=== PATIENT | male | born 1945 | race African-American/Black ===

== ENCOUNTER 2017-04-02 16:31 | Emergency (ER) | payer MEDICARE, MEDICAID ==
[~2017-04-02 16:31] MED LIST: Sodium Chloride Irrig Solution 250 ML BOT ONE
[2017-04-02] MEDS ORDERED: Adacel (T-DAP) 0.5 ML VIAL ONE (17:32)
[2017-04-02] MEDS ORDERED: Triple Antibiotic Oint 1 GM Packet ONE (17:47)
[2017-04-02] MEDS ORDERED: HYDROcodone/Acetaminophen 10/325 mg Tablet ONE (17:57)
[2017-04-02] MEDS ORDERED: Naproxen 500 MG TAB ONE (17:57)
[2017-04-02] MEDS ORDERED: Diazepam 5 MG TAB ONE (17:57)
[2017-04-02] MEDS ORDERED: Cephalexin 500 MG CAP ONE (17:57)
--- NOTE | 2017-04-02 18:11 | RAD ---
RIGHT HAND THREE VIEWS: History: Trauma. Comparison: None. FINDINGS: No acute fracture or malalignment is appreciated. There is some calcification along the triangular f ibrocartilage near the radial insertion. Mild interphalangeal joint space narrowing of the third, fourth, and fifth proximal interphalangeal joints. Mild punctate radiopaque foreign object projecting over the dorsal soft tissues of the distal forear m seen only on the radial radiograph. IMPRESSION: 1. No acute fracture or malalignment. 2. Only seen on the lateral radiograph is a dorsal distal radiopaque foreign object projecting over the soft tissues measuring approximately 2 mm. Forearm radiographs may be beneficial. POS: [facility]
== END 2017-04-02 18:03 | disposition home or self-care (01) ==
LOC: MADERS 16:31
DX: S61.411A Laceration without foreign body of right hand, initial encounter (principal); M54.5 Low back pain; I10 Essential (primary) hypertension; E11.9 Type 2 diabetes mellitus without complications; W01.0XXA Fall on same level from slipping, tripping and stumbling without subsequent striking against object, initial encounter
CPT/HCPCS: 12002; 90471; 90715

== ENCOUNTER 2017-05-27 14:21 | Emergency (ER) | payer MEDICARE, MEDICAID | END 2017-05-27 15:05 | disposition home or self-care (01) | LOC: MADERS 14:21 | DX: S16.1XXA Strain of muscle, fascia and tendon at neck level, initial encounter (principal); E11.9 Type 2 diabetes mellitus without complications; I10 Essential (primary) hypertension; X58.XXXA Exposure to other specified factors, initial encounter | CPT/HCPCS: 99283 ==

== ENCOUNTER 2017-07-30 12:06 | Emergency (ER) | payer MEDICARE, MEDICAID | END 2017-07-30 13:26 | disposition home or self-care (01) | LOC: MADERS 12:06 | DX: H61.21 Impacted cerumen, right ear (principal); E11.9 Type 2 diabetes mellitus without complications; I10 Essential (primary) hypertension; Z87.891 Personal history of nicotine dependence; Z79.84 Long term (current) use of oral hypoglycemic drugs; Z79.899 Other long term (current) drug therapy | CPT/HCPCS: 99282 ==

== ENCOUNTER 2017-11-08 08:45 | Emergency (ER) | payer MEDICARE, MEDICAID ==
--- NOTE | 2017-11-08 09:52 | RAD ---
CHEST PA AND LATERAL TWO VIEWS: History: 72-year-old male with history of right sided back pain with inspiration. Comparison: 10-20-13 FINDINGS: Old numerous healed left rib fractures with some healed right rib fractures with some associated pleu ral thickening. No confluent pneumonia, overt edema, or pleural effusion. Mild apical pleural thicken ing. Heart size is within normal limits. Atherosclerosis of the aorta. IMPRESSION: Bilateral healed rib fractures and associated deformity. No significant acute intrathoracic disease. Atherosclerosis of the aorta with some ectasia. POS: [facility]
== END 2017-11-08 10:45 | disposition home or self-care (01) ==
LOC: MADERS 08:45
DX: J06.9 Acute upper respiratory infection, unspecified (principal); R07.81 Pleurodynia; I10 Essential (primary) hypertension; E11.9 Type 2 diabetes mellitus without complications; Z87.891 Personal history of nicotine dependence; Z79.899 Other long term (current) drug therapy
CPT/HCPCS: 71046

== ENCOUNTER 2018-02-06 07:38 | Emergency (ER) | payer MEDICARE, MEDICAID ==
--- NOTE | 2018-02-06 09:34 | RAD ---
RIGHT RIBS TWO VIEWS: PA CHEST X-RAY: HISTORY: Fall. COMPARISON: 11/08/2017 FINDINGS: There are increased interstitial markings throughout the lungs. Mild blunting of the right lateral c ostophrenic and the left lateral costophrenic sulci. Heart size is at the upper limits of normal. No right-sided pneumothorax. No displaced fracture. IMPRESSION: 1. Mild increased interstitial markings with low grade blunting of both costophrenic sulci, which ca n be seen with early edema. 2. No acute displaced right-sided rib fracture. 3. Apparent bridging bone between the posterior left 4th-8th ribs may be sequelae of prior fracture. POS: [facility]
== END 2018-02-06 09:35 | disposition home or self-care (01) ==
LOC: MADERS 07:38
DX: S20.211A Contusion of right front wall of thorax, initial encounter (principal); E11.9 Type 2 diabetes mellitus without complications; I10 Essential (primary) hypertension; Z87.891 Personal history of nicotine dependence; Z79.899 Other long term (current) drug therapy; Z79.84 Long term (current) use of oral hypoglycemic drugs; W18.30XA Fall on same level, unspecified, initial encounter

== ENCOUNTER 2018-06-15 13:16 | Emergency (ER) | payer MEDICARE, MEDICAID ==
[2018-06-15] MEDS ORDERED: predniSONE 20 MG TAB ONE (14:50)
[2018-06-15] MEDS ORDERED: Ketorolac Tromethamine 60 MG/2 ML VIAL ONE (14:50)
--- NOTE | 2018-06-15 15:27 | CT ---
CT ABDOMEN AND PELVIS WIHTOUT IV CONTRAST: Date: 06/15/18 Multiple axial tomograms obtained through the abdomen and pelvis without IV enhancement. INDICATION: Left lower abdominal pain. Comparison made to CT of 03/05/13. FINDINGS: Lung bases clear. Hepatic cystic lesions are again seen and appear stable from the 03/05/13 study. Spleen and pancreas appear unremarkable given the limitations of an unenhanced exam. There is a 1.5 cm low density nodule involving the lateral limb of the left adrenal and there is anot her 1.4 cm nodule involving the medial limb of the left adrenal. The lateral limb nodule is low densi ty with Hounsfield units recorded at -11, indicating a benign myelolipoma. The more medial limb nodul e is more dense with Hounsfield units recorded at 8-9, still suggesting benign adenoma. Both of these left adrenal nodular densities are stable. The right adrenal gland appears unremarkable. A left renal cystic lesion measuring 3.0 cm is stable. No hydronephrosis. No urinary tract calculus. Small bowel loops are normal. Scattered diverticula are seen throughout the colon with more diffuse diverticulitis in the left colo n and sigmoid. Axial images show evidence of some early inflammatory haziness surrounding the upper sigmoid which could represent very mild or early diverticulitis. No extraluminal gas or fluid. Aorta normal caliber. There is prostatic hypertrophy, which does indent the floor of the bladder. This appears stable from prior exam. IMPRESSION: 1. Diverticulosis of the left colon and sigmoid. Questionable changes of early diverticulitis in the lower left colon/upper sigmoid in the left lower quadrant. 2. Two left adrenal nodules are stable. 3. Left renal cyst is stable. 4. Hepatic cysts are stable. 5. Prostatic hypertrophy. POS: [facility]
== END 2018-06-15 15:00 | disposition home or self-care (01) ==
LOC: MADERS 13:16
DX: M54.41 Lumbago with sciatica, right side (principal); E11.9 Type 2 diabetes mellitus without complications; Z87.891 Personal history of nicotine dependence; Z79.899 Other long term (current) drug therapy
CPT/HCPCS: 74176; 96372; J1885; J7506

== ENCOUNTER 2018-07-31 09:58 | Emergency (ER) | payer MEDICARE, MEDICAID ==
[2018-07-31 11:21] LABS: #Basophils 0.1 thou/uL (0.0-0.2); #Eosinphils 0.2 thou/uL (0.0-0.7); #Lymphocytes 1.8 thou/uL (1.20-3.40); #Monocytes 0.8 thou/uL (0.11-0.59); #Neutrophils 5.5 thou/uL (1.40-6.50); %Basophils 1.4 % (0.0-1.0); %Eosinophils 2.7 % (0.0-10.0); %Lymphocytes 21.3 % (21.0-51.0); %Monocytes 9.6 % (0.0-10.0); %Neutrophils 65.1 % (42.0-75.0); Hemoglobin 11.3 g/dL (14.0-18.0); Mean Corpuscular HGB CONC 30.7 g/dL (32.0-36.0); Mean Corpuscular Hemoglobin 26.1 pg (27.0-31.0); Mean Corpuscular Volume 85.1 fL (78.0-98.0); Mean Platelet Volume 9.2 fL (7.4-10.4); Platelet Count 213 thou/uL (130-400); RBC Distribution Width 12.5 % (11.5-14.5); Red Blood Cell (RBC) Count 4.33 mill/uL (4.70-6.10); White Blood Cell (WBC) Count 8.4 thou/uL (4.8-10.8)
[2018-07-31 11:24] LABS: Bilirubin Moderate (Negative); Blood, Urine Negative (Negative); Clarity Clear (Clear); Glucose, Urine (Dipstick) Negative (Negative); Leukocyte Negative (Negative); Nitrite Negative (Negative); Protein, Urine (Dipstick) Trace mg/dL (Neg-Trace); Urobilinogen 0.2 mg/dL (0.2-1.0); pH, Urine 5.5 (5.0-9.0)
[2018-07-31 11:29] LABS: Specific Gravity, Urine 1.019 (1.002-1.036)
[2018-07-31 11:36] LABS: ALT (SGPT) 9 U/L (8-55); AST (SGOT) 14 U/L (5-34); Albumin 4.3 g/dL (3.4-4.8); Alkaline Phosphatase 68 U/L (40-150); Anion Gap 14 mmol/L (10-20); BUN (Urea Nitrogen) 22 mg/dL (8.4-25.7); Bilirubin, Total 0.7 mg/dL (0.2-1.2); Calc. Creatinine Clearance 0 mL/min (70-130); Calcium 9.2 mg/dL (7.8-10.44); Carbon Dioxide 28 mmol/L (23-31); Chloride 102 mmol/L (98-107); Estimated GFR-MDRD 55; Globulin 3.6 g/dL (2.4-3.5); Glucose 98 mg/dL (83-110); Lipase 8 U/L (8-78); Potassium 3.3 mmol/L (3.5-5.1); Protein, Total 7.9 g/dL (5.8-8.1); Sodium 141 mmol/L (136-145)
[2018-07-31] MEDS ORDERED: Iopamidol 370 76% 100 ML VIAL ONE (12:08)
--- NOTE | 2018-07-31 12:38 | CT ---
ABDOMEN CT WITH CONTRAST PELVIC CT WITH CONTRAST: History: Umbilical/suprapubic pain x 1 day. Comparison: 03-31-13, 06-14-18 FINDINGS: CT ABDOMEN: Chronic changes in the lung bases. Heart size is within normal limits. No pericardial fluid. Visualiz ed aorta has a normal caliber. No periaortic fat stranding. Patent portal vein. Unremarkable gallblad jorgito. Multiple hypodensities involving the liver compatible with hepatic cysts. Spleen, pancreas, and right adrenal gland are unremarkable. Re-demonstration of a stable nodule involving the left adrenal gland which has been previously documented to be a benign, stable lesion. Symmetric enhancement of the kid neys. No obstructive uropathy. Re-demonstration of the exophytic cyst emanating from the upper pole o f the left kidney measuring approximately 3.6 cm. No gastrohepatic, retrocrural, periportal lymphadenopathy. No mesenteric mass, lymphadenopathy, free air or free fluid. There are few scattered nonspecific lymp h nodes in the right lower quadrant mesentery. There is repair of a previously noted ventral abdominal wall hernia. No evidence of a significant ant erior abdominal wall hernia at this time. Limited evaluation of the alimentary canal due to lack of oral contrast. No evidence of bilateral obs truction. Normal caliber small bowel loops. Ileocecal junction is normal. Normal caliber appendix. Un remarkable colon. Scattered fecal material without evidence of chronic distention or obstruction. Div erticula are present. No evidence of diverticulitis. CT PELVIS: Mild prostatic hypertrophy with mass effect on the floor of the urinary bladder. Urinary bladder muco sa is unremarkable. No pelvic mass, lymphadenopathy, free air or free fluid. No lytic or blastic lesions in the osseous structures. Chronic changes involving the endplates in the lower lumbar spine are noted. IMPRESSION: 1. No acute abnormality in the abdomen or pelvis. 2. No evidence of bowel obstruction. 3. Re-demonstration of diverticulosis without evidence of diverticulitis. 4. Normal caliber appendix. 5. Stable left adrenal nodules. POS: [facility]
== END 2018-07-31 12:57 | disposition home or self-care (01) ==
LOC: MADERS 09:58
DX: R10.31 Right lower quadrant pain (principal); R10.32 Left lower quadrant pain; E11.9 Type 2 diabetes mellitus without complications; I11.0 Hypertensive heart disease with heart failure; Z87.891 Personal history of nicotine dependence; Z79.899 Other long term (current) drug therapy
CPT/HCPCS: 74177; 80053; 81003; 83690; 84484; 85025; 93005

== ENCOUNTER 2018-10-31 08:00 | Emergency (ER) | payer MEDICARE, MEDICAID ==
[2018-10-31] MEDS ORDERED: Cyclobenzaprine 10 MG TAB ONE (08:45)
[2018-10-31] MEDS ORDERED: Ibuprofen 800 MG TAB ONE (08:45)
== END 2018-10-31 08:50 | disposition home or self-care (01) ==
LOC: MADERS 08:00
DX: M54.5 Low back pain (principal); I10 Essential (primary) hypertension; Z87.891 Personal history of nicotine dependence; Z79.899 Other long term (current) drug therapy
CPT/HCPCS: 99283

== ENCOUNTER 2018-11-20 14:59 | Emergency (ER) | payer MEDICARE, MEDICAID ==
[2018-11-20] MEDS ORDERED: Morphine 4 MG/ML VIAL ONE (15:17)
[2018-11-20] MEDS ORDERED: Ondansetron PF 4 MG/2 ML Vial ONE (15:17)
[2018-11-20 15:18] LABS: #Basophils 0.1 thou/uL (0.0-0.2); #Eosinphils 0.2 thou/uL (0.0-0.7); #Lymphocytes 1.6 thou/uL (1.20-3.40); #Monocytes 0.6 thou/uL (0.11-0.59); #Neutrophils 5.9 thou/uL (1.40-6.50); %Basophils 0.7 % (0.0-1.0); %Eosinophils 2.8 % (0.0-10.0); %Lymphocytes 18.4 % (21.0-51.0); %Monocytes 7.6 % (0.0-10.0); %Neutrophils 70.4 % (42.0-75.0); Hemoglobin 11.1 g/dL (14.0-18.0); Mean Corpuscular Hemoglobin 25.3 pg (27.0-31.0); Mean Corpuscular Volume 84.3 fL (78.0-98.0); Mean Platelet Volume 6.2 fL (7.4-10.4); Platelet Count 213 thou/uL (130-400); RBC Distribution Width 13.9 % (11.5-14.5); Red Blood Cell (RBC) Count 4.39 mill/uL (4.70-6.10); White Blood Cell (WBC) Count 8.4 thou/uL (4.8-10.8)
[2018-11-20 15:22] LABS: Prothrombin Time 13.6 SEC (12.0-14.7)
[2018-11-20 15:33] LABS: ALT (SGPT) 9 U/L (8-55); AST (SGOT) 15 U/L (5-34); Albumin 4.3 g/dL (3.4-4.8); Alkaline Phosphatase 73 U/L (40-150); Anion Gap 14 mmol/L (10-20); BUN (Urea Nitrogen) 16 mg/dL (8.4-25.7); Bilirubin, Total 0.4 mg/dL (0.2-1.2); Calc. Creatinine Clearance 0 mL/min (70-130); Calcium 9.6 mg/dL (7.8-10.44); Carbon Dioxide 27 mmol/L (23-31); Chloride 104 mmol/L (98-107); Estimated GFR-MDRD 78; Globulin 4.3 g/dL (2.4-3.5); Glucose 93 mg/dL (83-110); Potassium 3.4 mmol/L (3.5-5.1); Protein, Total 8.6 g/dL (5.8-8.1); Sodium 142 mmol/L (136-145)
--- NOTE | 2018-11-20 16:13 | CT ---
FCT Abdomen Pelvis W Con: 11/20/2018 3:09 PM CLINICAL INFORMATION: Back pain, lower right side since yesterday COMPARISON: 07/31/2018, 06/15/2018 Procedure: Multiple contiguous axial images were obtained and a CT of the abdomen and pelvis with IV contrast. C oronal reformats were performed. FINDINGS: Lower Chest: Chronic changes. Dependent atelectatic changes Vessels: Normal caliber aorta Abdomen: Portal vein:Patent Gallbladder: No calcified gallstones. Normal caliber wall. Liver: Multiple hypodensities throughout the hepatic parenchyma, unchanged. Largest hypodensity appea rs to have a septation, measuring 4.3 x 3.5 cm (previously measuring 4.5 x 3.5 cm. Hepatic cyst is fa vored. No enhancing masses in the liver. Pancreas: within normal limits. Spleen: within normal limits. Adrenals: Right adrenal gland is unremarkable. Redemonstration of a 1.7 x 1.8 nodule associated with the left adrenal gland. Kidneys: Symmetric enhancement. Stable exophytic cyst emanating from the mid left renal cortex. Bilat erally no obstructive uropathy. Peritoneum: No ascites or free air, no fluid collection. Bowel: Limited evaluation due to the lack of oral contrast administration. No evidence of small bowel obstruction. Equalization of the distal ileum likely due to incompetent ileocecal valve. Normal palmira krystal appendix. Scattered fecal material in a nondistended, nondilated colon. Diverticulosis. No eviden ce of colitis. Mesentery and Retroperitoneum: No enlarged mesenteric or retroperitoneal lymph nodes. Abdominal Wall: Chronic changes involving the ventral subcutaneous fat at the level of the umbilicus. Pelvis: Reproductive Organs: No pelvic masses. Prostate gland is enlarged. Mass effect upon the urinary bladd er. Bones: Old bilateral rib fractures IMPRESSION: 1. No evidence of acute intraabdominal\pelvic abnormality. 2. Redemonstration of a nodule in the medial limb left adrenal gland. Smaller nodule in the lateral l imb may be present. No appreciable change. Nodules have been previously described to be adenomas.
== END 2018-11-20 17:00 | disposition home or self-care (01) ==
LOC: MADERS 14:59
DX: M54.5 Low back pain (principal); E11.9 Type 2 diabetes mellitus without complications; I10 Essential (primary) hypertension; Z87.891 Personal history of nicotine dependence; Z79.899 Other long term (current) drug therapy
CPT/HCPCS: 74177; 80053; 85025; 85610; 96374; 96375; J2270; J2405

== ENCOUNTER 2019-02-11 15:36 | Emergency (ER) | payer MEDICARE, MEDICAID ==
[2019-02-11] MEDS ORDERED: Nitroglycerin 0.4 MG TAB 1 EACH ONE (15:54)
--- NOTE | 2019-02-11 16:01 | RAD ---
EXAM: CHEST ONE VIEW HISTORY: Chest pain COMPARISON: 02/06/2018 FINDINGS: Cardiac silhouette is magnified by projection. Mild chronic lung changes are seen. No consolidation o r pleural fluid is identified. There is osseous bridging again seen involving multiple posterior left-sided ribs. There are nondisplaced fractures involving upper posterior right-sided ribs unchange d from prior study. Chest is stable from prior exam. IMPRESSION: 1. Findings likely related to mild chronic interstitial lung changes. 2. Indeterminate age posterior right-sided rib fractures, but the fractures are unchanged from prior exam. 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
[2019-02-11 16:22] LABS: #Basophils 0.2 thou/uL (0.0-0.2); #Eosinphils 0.4 thou/uL (0.0-0.7); #Lymphocytes 1.6 thou/uL (1.20-3.40); #Monocytes 0.8 thou/uL (0.11-0.59); #Neutrophils 6.9 thou/uL (1.40-6.50); %Basophils 1.5 % (0.0-1.0); %Eosinophils 4.2 % (0.0-10.0); %Lymphocytes 16.1 % (21.0-51.0); %Monocytes 8.5 % (0.0-10.0); %Neutrophils 69.7 % (42.0-75.0); Hemoglobin 9.6 g/dL (14.0-18.0); Mean Corpuscular HGB CONC 31.3 g/dL (32.0-36.0); Mean Corpuscular Hemoglobin 25.8 pg (27.0-31.0); Mean Corpuscular Volume 82.7 fL (78.0-98.0); Mean Platelet Volume 7.1 fL (7.4-10.4); Platelet Count 263 thou/uL (130-400); RBC Distribution Width 13.9 % (11.5-14.5); Red Blood Cell (RBC) Count 3.72 mill/uL (4.70-6.10); White Blood Cell (WBC) Count 9.8 thou/uL (4.8-10.8)
[2019-02-11 16:30] LABS: ALT (SGPT) 8 U/L (8-55); AST (SGOT) 12 U/L (5-34); Albumin 3.9 g/dL (3.4-4.8); Alkaline Phosphatase 62 U/L (40-150); Anion Gap 13 mmol/L (10-20); BUN (Urea Nitrogen) 27 mg/dL (8.4-25.7); Bilirubin, Total 0.2 mg/dL (0.2-1.2); CK (CPK) 78 U/L (30-200); Calc. Creatinine Clearance 0 mL/min (70-130); Calcium 8.8 mg/dL (7.8-10.44); Carbon Dioxide 27 mmol/L (23-31); Chloride 102 mmol/L (98-107); Estimated GFR-MDRD 53; Glucose 105 mg/dL (83-110); Lipase 17 U/L (8-78); Potassium 4.4 mmol/L (3.5-5.1); Protein, Total 7.9 g/dL (5.8-8.1); Sodium 138 mmol/L (136-145)
[2019-02-11] MEDS ORDERED: Morphine 4 MG/ML VIAL ONE (16:54)
== END 2019-02-11 17:28 | disposition short-term general hospital (02) ==
LOC: MADERS 15:36
DX: R07.89 Other chest pain (principal); J45.909 Unspecified asthma, uncomplicated; K21.9 Gastro-esophageal reflux disease without esophagitis; I10 Essential (primary) hypertension; E11.9 Type 2 diabetes mellitus without complications; Z87.891 Personal history of nicotine dependence; Z79.899 Other long term (current) drug therapy
CPT/HCPCS: 71045; 80053; 82550; 83690; 83880; 84484; 85025; 93005; 94760; 96374; J2270

== ENCOUNTER 2019-02-16 09:25 | Emergency (ER) | payer MEDICARE, MEDICAID | END 2019-02-16 10:15 | disposition home or self-care (01) | LOC: MADERS 09:25 | DX: S23.3XXA Sprain of ligaments of thoracic spine, initial encounter (principal); I10 Essential (primary) hypertension; K21.9 Gastro-esophageal reflux disease without esophagitis; J45.909 Unspecified asthma, uncomplicated; E11.9 Type 2 diabetes mellitus without complications; Z79.899 Other long term (current) drug therapy; X58.XXXA Exposure to other specified factors, initial encounter | CPT/HCPCS: 99283 ==

== ENCOUNTER 2019-02-19 00:18 | Emergency (ER) | payer MEDICARE, MEDICAID ==
[2019-02-19] MEDS ORDERED: Ketorolac Tromethamine 60 MG/2 ML VIAL ONE (00:34)
== END 2019-02-19 01:02 | disposition home or self-care (01) ==
LOC: MADERS 00:18
DX: M54.6 Pain in thoracic spine (principal); Z87.891 Personal history of nicotine dependence
CPT/HCPCS: J1885

== ENCOUNTER 2019-02-19 05:57 | Emergency (ER) | payer MEDICARE, MEDICAID ==
--- NOTE | 2019-02-19 08:08 | RAD ---
Radiograph left shoulder 2 views: HISTORY: Nontraumatic left shoulder pain, acute FINDINGS: Glenohumeral joint appears normal. Distal tip of clavicle appears normal. There is irregularity and b kartik hypertrophy of the distal tip of the acromion. No fracture or subluxation. IMPRESSION: 1. Mild to moderate chronic changes of distal tip of acromion. 2. Otherwise negative. 3. If there is concern for rotator cuff injury, consider noncontrast MRI.
[2019-02-19] MEDS ORDERED: Naproxen 500 MG TAB ONE (08:37)
[2019-02-19] MEDS ORDERED: Cyclobenzaprine 10 MG TAB ONE (09:07)
== END 2019-02-19 11:30 | disposition home or self-care (01) ==
LOC: MADERS 05:57
DX: M25.512 Pain in left shoulder (principal); I10 Essential (primary) hypertension; J45.909 Unspecified asthma, uncomplicated; E11.9 Type 2 diabetes mellitus without complications; Z76.0 Encounter for issue of repeat prescription; Z87.891 Personal history of nicotine dependence; Z79.899 Other long term (current) drug therapy
CPT/HCPCS: 99282; J1885

== ENCOUNTER 2021-09-28 02:05 | Emergency (ER) | payer MEDICARE, MEDICAID ==
[2021-09-28 02:54] LABS: #Basophils 0.1 thou/uL (0.0-0.2); #Eosinphils 0.5 thou/uL (0.0-0.7); #Lymphocytes 1.1 thou/uL (1.20-3.40); #Monocytes 0.9 thou/uL (0.11-0.59); #Neutrophils 6.4 thou/uL (1.40-6.50); %Basophils 0.6 % (0.0-1.0); %Eosinophils 5.1 % (0.0-10.0); %Lymphocytes 12.3 % (21.0-51.0); %Monocytes 10.1 % (0.0-10.0); %Neutrophils 71.9 % (42.0-75.0); Hemoglobin 10.3 g/dL (14.0-18.0); Mean Corpuscular HGB CONC 31.7 g/dL (32.0-36.0); Mean Corpuscular Hemoglobin 26.5 pg (27.0-31.0); Mean Corpuscular Volume 83.8 fL (78.0-98.0); Mean Platelet Volume 6.6 fL (7.4-10.4); Platelet Count 189 thou/uL (130-400); RBC Distribution Width 12.9 % (11.5-14.5); White Blood Cell (WBC) Count 8.8 thou/uL (4.8-10.8)
[2021-09-28 03:11] LABS: CRP (Inflammatory) 3.15 mg/dL (= or < 0.5); Uric Acid 8.2 mg/dL (3.5-7.2)
[2021-09-28 03:13] LABS: ALT (SGPT) Less than 7 U/L (8-55); AST (SGOT) 15 U/L (5-34); Albumin 3.8 g/dL (3.4-4.8); Alkaline Phosphatase 60 U/L (40-110); Anion Gap 14 mmol/L (10-20); BUN (Urea Nitrogen) 32 mg/dL (8.4-25.7); Bilirubin, Total 0.4 mg/dL (0.2-1.2); Calc. Creatinine Clearance 0 mL/min (70-130); Calcium 8.7 mg/dL (7.8-10.44); Carbon Dioxide 26 mmol/L (23-31); Chloride 105 mmol/L (98-107); Globulin 3.9 g/dL (2.4-3.5); Glucose 98 mg/dL (83-110); Potassium 3.7 mmol/L (3.5-5.1); Protein, Total 7.7 g/dL (5.8-8.1); Sodium 141 mmol/L (136-145)
[2021-09-28] MEDS ORDERED: HYDROcodone/Acetaminophen 10/325 mg Tablet ONE ×2 (03:44→08:08)
[2021-09-28] MEDS ORDERED: Colchicine 0.6 MG TAB ONE ×3 (03:45→07:13)
== END 2021-09-28 08:15 | disposition home or self-care (01) ==
LOC: MADERS 02:05
DX: M10.9 Gout, unspecified (principal); I10 Essential (primary) hypertension; E11.9 Type 2 diabetes mellitus without complications; K21.9 Gastro-esophageal reflux disease without esophagitis; J45.909 Unspecified asthma, uncomplicated; Z87.891 Personal history of nicotine dependence; Z79.84 Long term (current) use of oral hypoglycemic drugs; Z79.899 Other long term (current) drug therapy
CPT/HCPCS: 80053; 82550; 84550; 85025; 86140; 96372; J1040